=== PATIENT | male | born 1960 | race Two or more races ===

== ENCOUNTER → 2017-01-27 | Outpatient (CLI) | payer BC ==
[~2017-01-27] VITALS: Ht 172.7 cm; Wt 84.8 kg
[~2017-01-27] MED LIST: No medication
[2017-01-27 14:09] VITALS: BP_SYST 120; BP_SYST 152; BP_DIAS 71; BP_DIAS 92
--- NOTE | 2017-01-27 14:40 | GI Initial Consult Note ---
History of Present Illness General Date patient seen: Jan 27, 2017 Time patient seen: 14:36 Referring physician: MAHENDRA Reason for Consultation: ABDOMINAL PAIN Present Illness HPI 56 year old male patient referred by Dr. Wilson for epigastric pain x 3 months. Pt denies any prior medical history nor any unintentional weight loss. Had a colonoscopy back in 2014 with unremarkable results per patient. H. Pylori breath test was negative. Med list reviewed/reconciled: Yes Allergies: Coded Allergies: No Known Allergies (Unverified , 01/27/17) Patient History History Provided By: Patient Past Medical History: none PMH Narrative denies Past Surgical History: none Pertinent Family History: none Social History: Reports: smoking - half pack daily Review of Systems All Other Systems: negative except mentioned in HPI Physical Exam Vital Signs Date Time Temp Pulse Resp B/P Pulse Ox O2 Delivery O2 Flow Rate FiO2 01/27/17 14:09 98.2 85 16 152/92 99 WT 187 lbs HT 5'8 General Appearance: well appearing, no apparent distress, alert Head: normocephalic EENT: normal ENT inspection Neck: full range of motion, supple Respiratory: normal breath sounds, no respiratory distress Cardiovascular: normal rate Gastrointestinal: soft, normal bowel sounds, tenderness - epigastric Rectal: deferred Genitourinary: no CVA tenderness Musculoskeletal: normal inspection, back normal Neurologic: normal inspection, alert, oriented x3, responsive Psychiatric: normal inspection, judgement/insight normal, memory normal Skin: normal inspection, normal color, no rash, warm/dry Lymphatic: normal inspection, no adenopathy GI: Plan Problems: (1) Encounter for diagnostic endoscopy (2) Chronic GERD Plan pt requires EGD to evaluate epigastric pain/gerd, pending prior authorization s/p colonoscopy in 2014 with unremarkable results H. Pylori BT, negative Seen with Dr. Rowe. Thank you for referring this kind patient. Michelle Almanzar N.P. Jan 27, 2017 14:40
== END | disposition home or self-care (01) ==
LOC: PAN 14:03
DX: R10.13 Epigastric pain (principal); K21.9 Gastro-esophageal reflux disease without esophagitis; F17.210 Nicotine dependence, cigarettes, uncomplicated
CPT/HCPCS: 99201